=== PATIENT | male | born 1985 | race Caucasian/White ===

== ENCOUNTER → 2020-03-24 | Emergency (ER) | payer MEDICAID, OTHER ==
[~2020-03-24] VITALS: Ht 182.9 cm; Wt 72.7 kg
[~2020-03-24] MED LIST: CYCL-1 PO; HYDR1TAB PO; LIDOcaine 1% W/epiNEPHrine 1:200,000 10ml vial IJ ONE; NAPR-56 PO; NO HOME MEDS; TETanus/Pertussis (Acell)/Diphther VAC/PF (Tdap-Adult) 0.5ml syringe IMVAC ONE; tetanus & diphtheria toxoid (Td) vaccine 0.5ml IMVAC ONE
[2020-03-24 03:42] VITALS: BP 157/84
--- NOTE | 2020-03-24 03:59 | NUR ---
Spoked with [facility] dispatcher re pt. .
== END | disposition home or self-care (01) ==
LOC: ER 03:41
DX: S06.0X9A Concussion with loss of consciousness of unspecified duration, initial encounter (principal); S01.01XA Laceration without foreign body of scalp, initial encounter; F12.90 Cannabis use, unspecified, uncomplicated; Z98.890 Other specified postprocedural states; Z79.899 Other long term (current) drug therapy; Y04.8XXA Assault by other bodily force, initial encounter; Y93.89 Activity, other specified; Y92.89 Other specified places as the place of occurrence of the external cause; Y99.8 Other external cause status
CPT/HCPCS: 12002; 90471; 90715; 99283

== ENCOUNTER 2023-05-06 08:28 | Emergency (ER) | payer MEDICAID, OTHER ==
[~2023-05-06] VITALS: Ht 182.9 cm; Wt 63.6 kg
[~2023-05-06 08:28] MED LIST changes: -LIDOcaine 1% W/epiNEPHrine 1:200,000 10ml vial IJ ONE; -TETanus/Pertussis (Acell)/Diphther VAC/PF (Tdap-Adult) 0.5ml syringe IMVAC ONE; -tetanus & diphtheria toxoid (Td) vaccine 0.5ml IMVAC ONE
[2023-05-06 08:40] VITALS: BP 139/94
[2023-05-06] MEDS ORDERED: LIDOcaine 1% W/epiNEPHrine 1:100,000 20ml vial IJ ONE (08:45)
[2023-05-06] MEDS ORDERED: TETanus/Pertussis (Acell)/Diphther VAC/PF (Tdap-Adult) 0.5ml syringe IMVAC ONE (08:45)
--- NOTE | 2023-05-06 08:55 | NUR ---
DURING TRIAGE PT ASKING FOR A "BUTTERFLY BAND AID" FOR HEAD LAC. PROVIDER PRESENT DURING TRIAGE AND EXPLAINED TO PT THE WOUND REQUIRES SUTURES AND DUE TO LOC HE WOULD NEED A HEAD CT TO RULE OUT BLEEDING. PT STATED " HEAD TRAUMA DOESNT SCARE ME, IM FROM [place] STREETS." PROVIDER TAMAR PEÑA EXPLAINED THAT THERE IS POTENTIAL FOR A BRAIN BLEED AND IF HE IS NOT SEEN AND TREATED HE COULD . PT STATED HE WOULD STAY AND BE TREATED. IMMEDIATLY AFTER WALKING OUT OF TRIAGE, PT SAID " FUCK THIS SHIT" AND WALKED OUT OF THE ED.
== END 2023-05-06 11:25 | disposition home or self-care (01) ==
LOC: ER 08:28
DX: S01.01XA Laceration without foreign body of scalp, initial encounter (principal); Y04.8XXA Assault by other bodily force, initial encounter; Y93.89 Activity, other specified; Y92.89 Other specified places as the place of occurrence of the external cause; Y99.8 Other external cause status
CPT/HCPCS: 99283